=== PATIENT | female | born 1940 | race Caucasian/White ===

== ENCOUNTER 2023-07-26 10:49 | Outpatient (CLI) | payer BC | END 2023-07-26 10:50 | disposition home or self-care (01) | LOC: CSHMAMMO 10:49 | PROVIDERS: ATTEND Internal Medicine | DX: Z12.31 Encounter for screening mammogram for malignant neoplasm of breast (principal); Z80.3 Family history of malignant neoplasm of breast; Z91.89 Other specified personal risk factors, not elsewhere classified | CPT/HCPCS: 77063; 77067 ==

== ENCOUNTER 2023-11-14 12:17 | Inpatient (IN) | payer MEDICARE, BC ==
[2023-11-14 12:45] LABS: #Monocytes 0.6 10x3/uL (0.0-1.1); #Neutrophils 4.7 10x3/uL (1.5-8.4); %Basophils 0.3 % (0.0-2.0); %Eosinophils 0.3 % (0.0-6.0); %Monocytes 9.6 % (0.0-10.0); %Neutrophils 72.6 % (40.0-75.0); Hematocrit 37.9 % (34.9-44.5); Hemoglobin 12.6 g/dL (12.0-15.5); Mean Corpuscular HGB CONC 33.2 g/dL (32.0-36.0); Mean Corpuscular Volume 87.3 fl (81.6-98.3); Mean Platelet Volume 10.5 fl (7.4-10.4); Platelet Count 244 10x3/uL (150-450); RBC Distribution Width 16.1 % (11.5-14.5); Red Blood Cell (RBC) Count 4.34 10x6/uL (3.90-5.03); White Blood Cell (WBC) Count 6.5 10x3/uL (3.5-10.5)
[2023-11-14 12:54] LABS: PTT 23.9 sec (22.0-33.0); Prothrombin Time 10.3 sec (9.5-12.1)
[2023-11-14 13:03] LABS: Troponin I Less than 0.010 ng/mL (< 0.028)
[2023-11-14 13:03] LABS: ALT (SGPT) 19 U/L (8-55); AST (SGOT) 31 U/L (5-34); Albumin 4.4 g/dL (3.4-4.8); Alkaline Phosphatase 82 U/L (40-110); Anion Gap 17 mmol/L (10-20); BUN (Urea Nitrogen) 19 mg/dL (9.8-20.1); Bilirubin, Total 0.6 mg/dL (0.2-1.2); Calc. Creatinine Clearance 0 mL/min (70-130); Calcium 9.8 mg/dL (7.8-10.44); Carbon Dioxide 19 mmol/L (23-31); Chloride 105 mmol/L (98-107); Estimated GFR 87; Globulin 2.9 g/dL (2.4-3.5); Glucose 104 mg/dL (83-110); Potassium 4.6 mmol/L (3.5-5.1); Protein, Total 7.3 g/dL (5.8-8.1); Sodium 136 mmol/L (136-145)
[2023-11-14 15:20] LABS: Troponin I Less than 0.010 ng/mL (< 0.028)
[2023-11-14] MEDS ORDERED: Electrolyte Replacement Protocol 1 EACH FS SCH (16:45)
[2023-11-14] MEDS ORDERED: Ondansetron PF 4 MG/2 ML Vial IVP PRN (16:45)
[2023-11-14] MEDS ORDERED: Ondansetron ODT 4 MG TAB PO PRN (16:45)
[2023-11-14] MEDS ORDERED: Acetaminophen 650 MG Suppository PR PRN (16:45)
[2023-11-14] MEDS ORDERED: Senokot S 8.6-50 MG TAB PO PRN (16:45)
[2023-11-14] MEDS ORDERED: HYDROcodone/Acetaminophen 5/325 mg Tablet PO PRN (16:45)
[2023-11-14] MEDS ORDERED: Oxymetazoline HCl 0.05% ( 15 ML ) NASAL PRN (17:37)
[2023-11-14 19:16] LABS: Troponin I Less than 0.010 ng/mL (< 0.028)
[2023-11-14 20:48] VITALS: BMI 28.8
[2023-11-14] MEDS: Sodium Chloride 0.9% 1,000 ML IV SCH (21:58)
[2023-11-14] MEDS: Sodium Chloride 0.65% Nasal 44 ML BOT EA NARE SCH (21:59)
[2023-11-15 04:25] LABS: #Monocytes 0.9 10x3/uL (0.0-1.1); #Neutrophils 5.4 10x3/uL (1.5-8.4); %Basophils 0.3 % (0.0-2.0); %Eosinophils 0.1 % (0.0-6.0); %Lymphocytes 12.7 % (18.0-47.0); %Neutrophils 74.8 % (40.0-75.0); Hematocrit 33.8 % (34.9-44.5); Hemoglobin 10.9 g/dL (12.0-15.5); Mean Corpuscular HGB CONC 32.2 g/dL (32.0-36.0); Mean Corpuscular Volume 86.9 fl (81.6-98.3); Mean Platelet Volume 10.8 fl (7.4-10.4); Platelet Count 224 10x3/uL (150-450); RBC Distribution Width 16.3 % (11.5-14.5); Red Blood Cell (RBC) Count 3.89 10x6/uL (3.90-5.03); White Blood Cell (WBC) Count 7.2 10x3/uL (3.5-10.5)
[2023-11-15 04:49] LABS: Anion Gap 15 mmol/L (10-20); BUN (Urea Nitrogen) 15 mg/dL (9.8-20.1); Calc. Creatinine Clearance 86 mL/min (70-130); Calcium 8.9 mg/dL (7.8-10.44); Carbon Dioxide 20 mmol/L (23-31); Chloride 106 mmol/L (98-107); Estimated GFR 88; Glucose 125 mg/dL (83-110); Magnesium 1.8 mg/dL (1.6-2.6); Potassium 3.9 mmol/L (3.5-5.1); Sodium 137 mmol/L (136-145)
[2023-11-15 04:53] LABS: Phosphorus 3.3 mg/dL (2.3-4.7)
[2023-11-15] MEDS: Levothyroxine Sodium 112 MCG TAB PO SCH ×2 (06:18→11:27)
[2023-11-15] MEDS ORDERED: Magnesium 2 GM/50 ML BAG (IN WATER) ONE (08:45)
[2023-11-15] MEDS: Magnesium 2 GM/50 ML(in water) 2 GM in Premix 1 BAG IVPB SCH (10:55)
[2023-11-15] MEDS ORDERED: Nitroglycerin 0.4 MG TAB (25 Tab Bottle) SL PRN (11:24)
[2023-11-15] MEDS: Diclofenac 1% 50 GM TOPICAL GEL TP SCH (13:35)
[2023-11-15] MEDS: Atorvastatin Calcium 10 MG TAB PO SCH (21:53)
[2023-11-15] MEDS: Ranolazine ER 500 MG TAB PO SCH (21:53)
[2023-11-15] MEDS: Amlodipine 5 MG TAB PO SCH (21:54)
[2023-11-15] MEDS: TICAGRELOR 90 MG TABLET PO SCH (21:54)
[2023-11-15] MEDS: Acetaminophen 325 MG TAB PO PRN (21:56)
[2023-11-16] MEDS: Levothyroxine Sodium 112 MCG TAB PO SCH (05:04)
[2023-11-16 05:56] LABS: #Monocytes 0.7 10x3/uL (0.0-1.1); #Neutrophils 4.5 10x3/uL (1.5-8.4); %Basophils 0.5 % (0.0-2.0); %Eosinophils 0.6 % (0.0-6.0); %Lymphocytes 14.6 % (18.0-47.0); %Monocytes 11.4 % (0.0-10.0); %Neutrophils 72.4 % (40.0-75.0); Hematocrit 32.2 % (34.9-44.5); Hemoglobin 10.5 g/dL (12.0-15.5); Mean Corpuscular HGB CONC 32.6 g/dL (32.0-36.0); Mean Corpuscular Hemoglobin 28.7 pg (27.0-33.0); Mean Platelet Volume 11.1 fl (7.4-10.4); Platelet Count 180 10x3/uL (150-450); RBC Distribution Width 16.4 % (11.5-14.5); Red Blood Cell (RBC) Count 3.66 10x6/uL (3.90-5.03); White Blood Cell (WBC) Count 6.2 10x3/uL (3.5-10.5)
[2023-11-16 06:00] LABS: Anion Gap 11 mmol/L (10-20); BUN (Urea Nitrogen) 11 mg/dL (9.8-20.1); Calc. Creatinine Clearance 84 mL/min (70-130); Calcium 8.6 mg/dL (7.8-10.44); Carbon Dioxide 23 mmol/L (23-31); Chloride 108 mmol/L (98-107); Estimated GFR 88; Glucose 120 mg/dL (83-110); Magnesium 1.9 mg/dL (1.6-2.6); Potassium 3.6 mmol/L (3.5-5.1); Sodium 138 mmol/L (136-145)
[2023-11-16] MEDS ORDERED: BIFIDOBACTERIUM INFANTIS 4 MG PO SCH (09:00)
[2023-11-16] MEDS: Aspirin 81 mg Enteric Coated Tablet PO SCH (09:47)
[2023-11-16] MEDS: CO Q-10 CAPSULE 50 MG PO SCH (09:47)
[2023-11-16] MEDS: Multivitamin W/ Minerals 1 TAB PO SCH (09:47)
[2023-11-16] MEDS: Fish Oil 1,000 MG CAP PO SCH (09:47)
[2023-11-16] MEDS: Loratadine 10 MG TAB PO SCH (09:48)
[2023-11-16] MEDS: Magnesium 2 GM/50 ML(in water) 2 GM in Premix 1 BAG IVPB SCH (09:48)
[2023-11-16] MEDS: Losartan 50 MG TAB PO SCH (09:48)
[2023-11-16 15:24] VITALS: BP 111/58; TEMP 97.5
[2023-11-17] MEDS ORDERED: Losartan 25 MG TAB PO SCH (09:00)
== END 2023-11-16 15:45 | disposition home or self-care (01) | DRG 312 ==
LOC: CSHERS 12:17 → CSHERHOLD 14:13 → CSHTELE 11-15 15:40
PROVIDERS: ADMIT Internal Medicine; ATTEND Family Medicine
PROC: 2Y41X5Z Packing of Nasal Region using Packing Material (ICD-10-PCS; principal; 2023-11-14)
PROC: 0HQ1XZZ Repair Face Skin, External Approach (ICD-10-PCS; 2023-11-14)
PROC: 0HQFXZZ Repair Right Hand Skin, External Approach (ICD-10-PCS; 2023-11-14)
DX: I95.1 Orthostatic hypotension (principal); S06.9X9A Unspecified intracranial injury with loss of consciousness of unspecified duration, initial encounter; R04.0 Epistaxis; E03.9 Hypothyroidism, unspecified; K21.9 Gastro-esophageal reflux disease without esophagitis; E78.5 Hyperlipidemia, unspecified; M19.90 Unspecified osteoarthritis, unspecified site; I25.10 Atherosclerotic heart disease of native coronary artery without angina pectoris; S01.81XA Laceration without foreign body of other part of head, initial encounter; S61.419A Laceration without foreign body of unspecified hand, initial encounter; S02.2XXA Fracture of nasal bones, initial encounter for closed fracture; W19.XXXA Unspecified fall, initial encounter; Y92.239 Unspecified place in hospital as the place of occurrence of the external cause; Z95.1 Presence of aortocoronary bypass graft; Z90.49 Acquired absence of other specified parts of digestive tract; Z98.51 Tubal ligation status; Z88.1 Allergy status to other antibiotic agents; Z88.8 Allergy status to other drugs, medicaments and biological substances; Z88.2 Allergy status to sulfonamides; Z98.890 Other specified postprocedural states; Z79.899 Other long term (current) drug therapy; Z79.82 Long term (current) use of aspirin; I25.2 Old myocardial infarction; Z95.5 Presence of coronary angioplasty implant and graft; Z87.891 Personal history of nicotine dependence
CPT/HCPCS: 12001; 12013; 30903; 36415; 70450; 70486; 71045; 72125; 80048; 80053; 83735; 84100; 84484; 85025; 85610; 85730; 93005; 93306; 94760; J3475; J7050

== ENCOUNTER 2023-11-17 15:41 | Emergency (ER) | payer BC, MEDICARE ==
[2023-11-17] MEDS ORDERED: Oxymetazoline HCl 0.05% ( 15 ML ) ONE (15:55)
== END 2023-11-17 16:55 | disposition home or self-care (01) ==
LOC: CSHERS 15:41
DX: R04.0 Epistaxis (principal); Z55.6 Problems related to health literacy; E03.9 Hypothyroidism, unspecified; K21.9 Gastro-esophageal reflux disease without esophagitis; E78.5 Hyperlipidemia, unspecified; I10 Essential (primary) hypertension; M19.90 Unspecified osteoarthritis, unspecified site
CPT/HCPCS: 99283

== ENCOUNTER → 2024-08-18 | Emergency (ER) | payer BC ==
[2024-08-18 17:27] LABS: ALT (SGPT) 21 U/L (8-55); AST (SGOT) 22 U/L (5-34); Albumin 4.1 g/dL (3.4-4.8); Alkaline Phosphatase 81 U/L (40-110); Anion Gap 13 mmol/L (10-20); BUN (Urea Nitrogen) 18 mg/dL (9.8-20.1); Bilirubin, Total 0.5 mg/dL (0.2-1.2); Calc. Creatinine Clearance 0 mL/min (70-130); Calcium 10.3 mg/dL (7.8-10.44); Carbon Dioxide 26 mmol/L (23-31); Chloride 103 mmol/L (98-107); Estimated GFR 74; Globulin 2.9 g/dL (2.4-3.5); Glucose 120 mg/dL (83-110); Potassium 4.2 mmol/L (3.5-5.1); Sodium 138 mmol/L (136-145)
[2024-08-18 17:30] LABS: #Basophils 0.02 10x3/uL (0.0-0.2); #Eosinophils 0.05 10x3/uL (0.0-0.5); %Basophils 0.3 % (0.0-2.0); %Eosinophils 0.8 % (0.0-6.0); %Lymphocytes 11.3 % (18.0-47.0); %Neutrophils 78.1 % (40.0-75.0); Hematocrit 42.5 % (34.9-44.5); Hemoglobin 13.8 g/dL (12.0-15.5); Mean Corpuscular HGB CONC 32.5 g/dL (32.0-36.0); Mean Corpuscular Hemoglobin 31.5 pg (27.0-33.0); Mean Platelet Volume 10.1 fL (7.4-10.4); Platelet Count 200 10x3/uL (150-450); RBC Distribution Width 13.3 % (11.5-14.5); Red Blood Cell (RBC) Count 4.38 10x6/uL (3.90-5.03); White Blood Cell (WBC) Count 6.7 10x3/uL (3.5-10.5)
[2024-08-18 17:33] LABS: Troponin I Less than 0.010 ng/mL (< 0.028)
== END ==
LOC: CSHERS 16:22
DX: M94.0 Chondrocostal junction syndrome [Tietze] (principal); R07.89 Other chest pain; Z55.0 Illiteracy and low-level literacy; I10 Essential (primary) hypertension
CPT/HCPCS: 71045; 80053; 84484; 85025; 93005